=== PATIENT | female | born 2005 | race Caucasian/White ===

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

== ENCOUNTER 2024-01-08 11:05 | Outpatient (CLI) | payer MEDICAID ==
[2024-01-08 11:35] LABS: ESTIMATED AVERAGE GLUCOSE 105 mg/dL (70-100); HEMOGLOBIN A1c% 5.3 % (4.27-6.07)
[2024-01-08 23:03] LABS: CHLAMYDIA TRACHOMATIS DNA NEGATIVE (NEGATIVE); NEISSERIA GONORRHOEAE DNA NEGATIVE (NEGATIVE)
[2024-01-09 00:03] LABS: BACTERIAL VAGINOSIS DNA NEGATIVE (NEGATIVE); CANDIDA GLABRATA DNA NEGATIVE (NEGATIVE); CANDIDA GROUP DNA NEGATIVE (NEGATIVE); CANDIDA KRUSEI DNA NEGATIVE (NEGATIVE); TRICHOMONAS VAGINALIS DNA NEGATIVE (NEGATIVE)
== END 2024-01-08 11:06 | disposition home or self-care (01) ==
LOC: LAB 11:05
PROVIDERS: ATTEND Nurse Practitioner
DX: B37.9 Candidiasis, unspecified (principal); L29.8 Other pruritus
CPT/HCPCS: 36415; 81514; 81599; 83036; 87491; 87591; 87661

== ENCOUNTER 2024-02-02 17:03 | Outpatient (CLI) | payer MEDICAID | END 2024-02-02 17:04 | disposition home or self-care (01) | LOC: LAB 17:03 | PROVIDERS: ATTEND Nurse Practitioner | DX: Z11.3 Encounter for screening for infections with a predominantly sexual mode of transmission (principal) | CPT/HCPCS: 36415; 86592; 86695; 86696 ==